=== PATIENT | female | born 2000 | race Two or more races ===

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

== ENCOUNTER 2018-09-12 16:29 | Emergency (ER) | payer MEDICAID ==
--- NOTE | 2018-09-12 17:21 | ER Document Report ---
ED Medical Screen (RME) - General Chief Complaint: OB Problem (<20wks) Stated Complaint: VAGINAL BLEEDING X2 DAYS Time Seen by Provider: 09/12/18 17:10 Primary Care Provider: SOFIE MITCHELL CNM [Primary Care Provider] - Follow up as needed TRAVEL OUTSIDE OF THE [place] IN LAST 30 DAYS: No - HPI Notes: 09/12/18 17:20 Patient is a 18-year-old female G3, P1 19 weeks 6 days who presents complaining of intermittent "mild" cramping with spotting over the past 2 days. Patient states that he does not feel like labor his cramps but more of a menstrual type cramps. She is able to eat and drink without difficult he. She is urinating normally. She is having normal bowel movements. She has not been seen by [facility] who wanted her evaluated here. Denies [place], fever, neck pain, URI, CP, SOB, dysuria, back pain, or rash. I have treated and performed a rapid initial assessment of this patient. A comprehensive ED assessment and evaluation of the patient, analysis of test resu lts and completion of medical decision making process will be conducted by additional ED providers. PHYSICAL EXAMINATION: GENERAL: Well-appearing, well-nourished and in no acute distress. A&Ox4. A nswers questions appropriately. LUNGS: Breath sounds clear to auscultation bilaterally and equal. No wheezes rales or rhonchi. HEART: Regular rate and rhythm without murmurs, rubs, gallops. ABDOMEN: Soft, nondistended abdomen. No guarding, no rebound. Normal bowel sounds present. No CVA tenderness bilaterally. + mild tenderness lower abd (cannot elicit thorough abd exam w/o bed, however). - Related Data Allergies/Adverse Reactions: amoxicillin [Amoxicillin] Allergy (Verified 09/12/18 17:04) Penicillins Allergy (Verified 09/12/18 17:04) Past Medical History - General Last Menstrual Period: 04/26/18 - Social History Frequency of alcohol use: None Drug Abuse: None Renal/ Medical History: Denies: Hx Peritoneal Dialysis Psychiatric Medical History: Reports: Hx Depression Past Surgical History: Reports: Hx Section, Hx Oral Surgery - Immunizations Immunizations up to date: Yes Hx Diphtheria, Pertussis, Tetanus Vaccination: Yes History of Influenza Vaccine for 12/2016 - 05/2017 Season: No Physical Exam - Vital signs Vitals: Temp Pulse Resp BP Pulse Ox 98.2 F 79 16 111/58 L 98 09/12/18 16:52 09/12/18 16:52 09/12/18 16:52 09/12/18 16:52 09/12/18 16:52 Course - Vital Signs Vital signs: Temp Pulse Resp BP Pulse Ox 98.2 F 79 16 111/58 L 98 09/12/18 16:52 09/12/18 16:52 09/12/18 16:52 09/12/18 16:52 09/12/18 16:52 Doctor's Discharge - Discharge Referrals: SOFIE MITCHELL CNM [Primary Care Provider] - Follow up as needed
[2018-09-12 17:37] LABS: APPEARANCE,URINE SLIGHTLY-CLOUDY; BILIRUBIN,URINE NEGATIVE (NEGATIVE); COLOR,URINE YELLOW; GLUCOSE, URINE NEGATIVE (NEGATIVE); KETONES,URINE NEGATIVE (NEGATIVE); LEUKOCYTE ESTERASE,URINE NEGATIVE (NEGATIVE); NITRITE,URINE NEGATIVE (NEGATIVE); PROTEIN,URINE NEGATIVE (NEGATIVE); URINE SPECIFIC GRAVITY 1.006; UROBILINOGEN,URINE NEGATIVE mg/dL (<2.0)
--- NOTE | 2018-09-12 18:38 | RADIOLOGY REPORT (SQ) ---
EXAM DESCRIPTION: U/S OB 14+ TRNABD 1GES W/O DOP COMPLETED DATE/TIME: 09/12/2018 6:25 pm REASON FOR STUDY: 19wks 6 days per pt, spotting COMPARISON: None. TECHNIQUE: Static and Dynamic grayscale imaging performed of gravid uterus using transabdominal appr oach. Additional selected color Doppler and spectral images recorded. All stored on PACS. LIMITATIONS: None. FINDINGS: FETUSES SEEN:1 EGA: 15 weeks 5 days Calculated using BPD,FL,HC,AC documented on images. 1 month discrepancy with cl inical dates. ROBBI: 03/01/2019 EFW: 126+/- 19 grams PERCENTILE: Not calculated. IVETT: 10.6 cm. PLACENTA: Posterior GRADE: I PRESENTATION: Variable. ANATOMY: HEART RATE: 155 beats per minute. FOUR CHAMBER HEART: Visualized. THREE VESSEL CORD: Not seen CORD INSERTION: Not seen KIDNEYS AND BLADDER: Kidneys is seen and appear normal. The bladder is not seen. STOMACH: Visualized. Appears normal. SPINE: Normal as visualized. BRAIN AND LATERAL VENTRICLES: Not well seen. OTHER: No other significant finding. MATERNAL ADNEXA: Maternal ovaries not visualized. CERVICAL LENGTH: Not seen. Closed. OTHER: No other significant finding. IMPRESSION: LIVING INTRAUTERINE . ESTIMATED GESTATIONAL AGE 15 weeks 5 days. survey is limited. No abnormalities were seen. The is 4 weeks behind the clinical g estational age. Trimester of : Second trimester - 13 weeks 1 day to 27 weeks 6 days. TECHNICAL DOCUMENTATION: JOB ID: [id number] [employer]- All Rights Reserved Reading location - IP/workstation name: [email or web address]
[2018-09-12 18:48] LABS: ABSOLUTE LYMPHOCYTES (AUTO) 1.9 10^3/uL (0.5-4.7); ABSOLUTE MONOCYTES (AUTO) 0.4 10^3/uL (0.1-1.4); BASOPHILS % (AUTO) 0.3 % (0-2); EOSINOPHILS % (AUTO) 0.3 % (0-6); HEMATOCRIT 39.9 % (36.0-47.0); HEMOGLOBIN 13.5 g/dL (12.0-15.5); LYMPHOCYTES % (AUTO) 25.4 % (13-45); MEAN CORPUSCULAR HEMOGLOBIN 29.5 pg (27.0-33.4); MEAN CORPUSCULAR HGB CONC 33.9 g/dL (32.0-36.0); MEAN CORPUSCULAR VOLUME 87 fl (80-97); MONOCYTES % (AUTO) 5.3 % (3-13); PLATELET COUNT 202 10^3/uL (150-450); RED BLOOD COUNT 4.58 10^6/uL (3.72-5.28); RED CELL DISTRIBUTION WIDTH 12.6 % (11.5-14.0); SEGMENTED NEUTROPHILS % (AUTO) 68.7 % (42-78); TOTAL CELLS COUNTED % (AUTO) 100 %; WHITE BLOOD COUNT 7.3 10^3/uL (4.0-10.5)
[2018-09-12 19:04] LABS: ANION GAP 8 (5-19); BLOOD UREA NITROGEN 4 mg/dL (7-20); CALCIUM 9.5 mg/dL (8.4-10.2); CARBON DIOXIDE 25 mmol/L (22-30); CHLORIDE 104 mmol/L (98-107); GLUCOSE 74 mg/dL (75-110); POTASSIUM 4.1 mmol/L (3.6-5.0); SODIUM 136.8 mmol/L (137-145)
--- NOTE | 2018-09-12 19:40 | ER Document Report ---
ED General - General Chief Complaint: OB Problem (<20wks) Stated Complaint: VAGINAL BLEEDING X2 DAYS Time Seen by Provider: 09/12/18 17:10 Primary Care Provider: [facility] [Provider Group] - Follow up as needed SOFIE MITCHELL CNM [ALLIED HEALTH PROFESSIONAL] - Follow up in 3-5 days Notes: Patient is a 18-year-old female, G3, P1 that presents to the emergency department for chief complaint of vaginal bleeding. Patient reports she is approximately 20 weeks gravid, and had some vaginal spotting yesterday and today, was concerned her so she came to the emergency department to have it evaluated. She denies any significant bleeding, or soaking through any pads. She has had some mild abdominal cramping, describes it as a 2 out of 10, nothing unbearable. She denies having any associated nausea or vomiting or diarrhea. Denies any dysuria or hematuria. No other complaints at this time. She reports she did have a miscarriage in 1 of her prior pregnancies. Past Medical History: Denies chronic medical conditions Past Surgical History: Social History: Denies tobacco, alcohol or drug use. Family History: Reviewed and noncontributory for presenting illness Allergies: Reviewed, see documented allergy list. REVIEW OF SYSTEMS: Other than noted above, the 12 point review of systems was reviewed with the patient and were negative, all pertinent findings are included in the HPI. PHYSICAL EXAMINATION: Vital signs reviewed, nursing noted reviewed. GENERAL: Well-appearing, well-nourished and in no acute distress. HEAD: Atraumatic, normocephalic. EYES: Eyes appear normal, extraocular movements intact, sclera anicteric, conjunctiva are normal. ENT: nares patent, oropharynx clear without exudates. Moist mucous membranes. NECK: Normal range of motion, supple without lymphadenopathy LUNGS: Breath sounds clear to auscultation bilaterally and equal. No wheezes rales or rhonchi. HEART: Regular rate and rhythm without murmurs ABDOMEN: Soft, nontender, normoactive bowel sounds. No rebound, guarding, or rigidity. No masses appreciated. EXTREMITIES: Nontender, good range of motion, no pitting or edema. NEUROLOGICAL: No focal neurological deficits. Moves all extremities spontaneously Motor and sensory grossly intact on exam. PSYCH: Normal mood, normal affect. SKIN: Warm, Dry, normal turgor, no rashes or lesions noted on exposed skin TRAVEL OUTSIDE OF THE [place] IN LAST 30 DAYS: No - Related Data Allergies/Adverse Reactions: amoxicillin [Amoxicillin] Allergy (Verified 09/12/18 17:04) Penicillins Allergy (Verified 09/12/18 17:04) Past Medical History - General Last Menstrual Period: 04/26/18 - Social History Smoking Status: Never Smoker Frequency of alcohol use: None Drug Abuse: None Family History: Reviewed & Not Pertinent Patient has suicidal ideation: No Patient has homicidal ideation: No Renal/ Medical History: Denies: Hx Peritoneal Dialysis Psychiatric Medical History: Reports: Hx Depression Past Surgical History: Reports: Hx Section, Hx Oral Surgery - Immunizations Immunizations up to date: Yes Hx Diphtheria, Pertussis, Tetanus Vaccination: Yes Physical Exam - Vital signs Vitals: Temp Pulse Resp BP Pulse Ox 98.2 F 79 16 111/58 L 98 09/12/18 16:52 09/12/18 16:52 09/12/18 16:52 09/12/18 16:52 09/12/18 16:52 Course - Re-evaluation Re-evalutation: Patient seen and examined vital signs reviewed. Laboratory data and/or imaging were ordered as appropriate for the patient's presenting symptoms and complaint, with consideration of any critical or life threatening conditions that may be associated with their obtained history and ex am as noted above. Results were reviewed when available and demonstrated unremarkable blood work, h er OB ultrasound, demonstrated a single live intrauterine , with measuring smaller than gestational age by history, approximately 15 weeks as opposed to 20, this was discussed with the patient, however the fetus did appear live, with heartbeat and movements. The patient was re-evaluated and was stable Evaluation was most consistent with vaginal bleeding and advised follo w-up with [employer], given referral. Results were discussed with the patient at this point, after careful consideration I feel that that patient can be discharged from the emergency department, the patient was educated treatments and reasons to return to the emergency department based on their presumed diagnosis as noted above, they were advised to followup with a primary care physician in 2-3 days. Patient was agreeable to plan of care. *Note is created using voice recognition software and may contain spelling, syntax or grammatical errors. Laboratory 09/12/18 09/12/18 09/12/18 17:20 18:27 18:27 WBC 7.3 RBC 4.58 Hgb 13.5 Hct 39.9 MCV 87 MCH 29.5 MCHC 33.9 RDW 12.6 Plt Count 202 Seg Neutrophils % 68.7 Lymphocytes % 25.4 Monocytes % 5.3 Eosinophils % 0.3 Basophils % 0.3 Absolute Neutrophils 5.0 Absolute Lymphocytes 1.9 Absolute Monocytes 0.4 Absolute Eosinophils 0.0 Absolute Basophils 0.0 Sodium 136.8 L Potassium 4.1 Chloride 104 Carbon Dioxide 25 Anion Gap 8 BUN 4 L Creatinine 0.44 L Est GFR ( Amer) > 60 Est GFR (Non-Af Amer) > 60 Glucose 74 L Calcium 9.5 Urine Color YELLOW Urine Appearance SLIGHTLY-CLOUDY Urine pH 6.0 Ur Specific [place] 1.006 Urine Protein NEGATIVE Urine Glucose (UA) NEGATIVE Urine Ketones NEGATIVE Urine Blood SMALL H Urine Nitrite NEGATIVE Urine Bilirubin NEGATIVE Urine Urobilinogen NEGATIVE Ur Leukocyte Esterase NEGATIVE Urine WBC (Auto) 1 Urine RBC (Auto) 0 Urine Bacteria (Auto) 3+ Squamous Epi Cells Auto 10 Urine Mucus (Auto) OCC Urine Ascorbic Acid NEGATIVE Obstetrics Ultrasound 09/12/18 17:19 IMPRESSION: LIVING INTRAUTERINE . ESTIMATED GESTATIONAL AGE 15 weeks 5 days. survey is limited. No abnormalities were seen. The is 4 weeks behind the clinical gestational age. Trimester of : Second trimester - 13 weeks 1 day to 27 weeks 6 days. - Vital Signs Vital signs: Temp Pulse Resp BP Pulse Ox 98.2 F 79 16 122/63 98 09/12/18 19:30 09/12/18 19:30 09/12/18 19:30 09/12/18 19:30 09/12/18 19:30 - Laboratory Result Diagrams: 09/12/18 18:27 09/12/18 18:27 Laboratory results interpreted by me: 09/12/18 09/12/18 17:20 18:27 Sodium 136.8 L BUN 4 L Creatinine 0.44 L Glucose 74 L Urine Blood SMALL H Discharge - Discharge Clinical Impression: Vaginal bleeding during Condition: Stable Disposition: HOME, SELF-CARE Instructions: Bleeding During Early ([facility]) Additional Instructions: Please follow-up with your care team, your ultrasound today did not reveal any concerning cause of bleeding in , but continue to monitor for any worsening symptoms such as severe cramping, or passing of clots or more blood. Referrals: SOFIE MITCHELL CNM [ALLIED HEALTH PROFESSIONAL] - Follow up in 3-5 days [facility] [Provider Group] - Follow up as needed
[2018-09-12 19:54] VITALS: BP 122/63
== END 2018-09-12 19:57 | disposition home or self-care (01) ==
LOC: ER 16:29
DX: O46.92 Antepartum hemorrhage, unspecified, second trimester (principal); O26.892 Other specified pregnancy related conditions, second trimester; R10.9 Unspecified abdominal pain; Z3A.15 15 weeks gestation of pregnancy
CPT/HCPCS: 36415; 76805; 80048; 81001; 85025; 87086; 99284

== ENCOUNTER → 2018-09-12 | Outpatient (CLI) | payer MEDICAID | LOC: LC 15:23 | PROVIDERS: ATTEND Obstetrics & Gynecology | DX: Z53.9 Procedure and treatment not carried out, unspecified reason (principal) ==

== ENCOUNTER 2019-03-03 06:13 | Inpatient (IN) | payer MEDICAID ==
[2019-03-01 10:56] LABS: APPEARANCE,URINE SLIGHTLY-CLOUDY; BILIRUBIN,URINE NEGATIVE (NEGATIVE); COLOR,URINE YELLOW; GLUCOSE, URINE NEGATIVE (NEGATIVE); KETONES,URINE NEGATIVE (NEGATIVE); LEUKOCYTE ESTERASE,URINE MODERATE (NEGATIVE); NITRITE,URINE NEGATIVE (NEGATIVE); PROTEIN,URINE NEGATIVE (NEGATIVE); URINE SPECIFIC GRAVITY 1.009; UROBILINOGEN,URINE NEGATIVE mg/dL (<2.0)
[2019-03-01 11:04] LABS: URINE AMPHETAMINES SCREEN NEGATIVE; URINE BARBITURATES SCREEN NEGATIVE; URINE BENZODIAZEPINES SCREEN NEGATIVE; URINE COCAINE SCREEN NEGATIVE; URINE MARIJUANA (THC) SCREEN NEGATIVE; URINE METHADONE SCREEN NEGATIVE; URINE PHENCYCLIDINE SCREEN NEGATIVE
[2019-03-01 11:29] LABS: ABSOLUTE LYMPHOCYTES (AUTO) 2.3 10^3/uL (0.5-4.7); ABSOLUTE MONOCYTES (AUTO) 0.3 10^3/uL (0.1-1.4); ABSOLUTE NEUT (AUTO) 6.5 10^3/uL (1.7-8.2); BASOPHILS % (AUTO) 0.3 % (0-2); EOSINOPHILS % (AUTO) 0.4 % (0-6); HEMATOCRIT 35.7 % (36.0-47.0); HEMOGLOBIN 11.9 g/dL (12.0-15.5); LYMPHOCYTES % (AUTO) 24.7 % (13-45); MEAN CORPUSCULAR HEMOGLOBIN 26.5 pg (27.0-33.4); MEAN CORPUSCULAR HGB CONC 33.3 g/dL (32.0-36.0); MEAN CORPUSCULAR VOLUME 80 fl (80-97); MONOCYTES % (AUTO) 3.8 % (3-13); PLATELET COUNT 199 10^3/uL (150-450); RED BLOOD COUNT 4.49 10^6/uL (3.72-5.28); RED CELL DISTRIBUTION WIDTH 15.8 % (11.5-14.0); SEGMENTED NEUTROPHILS % (AUTO) 70.8 % (42-78); TOTAL CELLS COUNTED % (AUTO) 100 %; WHITE BLOOD COUNT 9.2 10^3/uL (4.0-10.5)
[~2019-03-03 06:13] MED LIST: CEFAZOLIN SODIUM 2 GM in DEXTROSE 5%-WATER 100 ML IV PRN; CITRIC ACID/SODIUM CITRATE ORAL SOLN 15 ML UDCUP PO PRN; LACTATED RINGERS 1000 ML IV PRN; LIDOCAINE 0.5% INJ-PF (5 MG/ML) 50 ML SDV SUBCUT PRN; RINGERS SOLUTION,LACTATED 1,500 ML IV PRN
[2019-03-03] MEDS ORDERED: KETAMINE HCL INJ 500 MG/10 ML VIAL ONE (07:07)
[2019-03-03] MEDS ORDERED: INFLUENZA QUAD (6MOS+) 2019-20 VAC 0.5 ML SYR IM ONE (07:50)
[2019-03-03] MEDS ORDERED: PROPOFOL INJ 200 MG/20 ML VIAL IV ONE (08:51)
[2019-03-03] MEDS ORDERED: DIPHENHYDRAMINE HCL 50 MG/ML VIAL ONE (08:51)
[2019-03-03] MEDS ORDERED: FENTANYL CITRATE INJ/PF 100 MCG/2 ML AMPUL ONE (08:51)
[2019-03-03] MEDS ORDERED: OXYTOCIN 10 UNIT/ML VIAL ONE (08:51)
[2019-03-03] MEDS ORDERED: MIDAZOLAM 2 MG/2 ML INJ ONE (08:51)
[2019-03-03] MEDS ORDERED: ACETAMINOPHEN 1,000 MG/100 ML RTUPB IV ONE (08:52)
[2019-03-03] MEDS ORDERED: OXYTOCIN/NORMAL SALINE 20 UNIT/1,000 ML RTUINJ ONE (08:52)
[2019-03-03] MEDS ORDERED: ONDANSETRON HCL INJ/PF 4 MG/2 ML SDV ONE (08:52)
[2019-03-03] MEDS ORDERED: CLINDAMYCIN 900 MG/D5W RTU 900 MG/50 ML RTUPB IV PRN (09:00)
[2019-03-03] MEDS ORDERED: LIDOCAINE 2% INJ-PF (20 MG/ML) 10 ML AMPUL ONE (09:31)
[2019-03-03] MEDS ORDERED: MEPERIDINE HCL/PF INJ 25 MG/1 ML DISP.SYRIN IV PRN (10:10)
[2019-03-03] MEDS ORDERED: ONDANSETRON HCL INJ/PF 4 MG/2 ML SDV IV PRN (10:10)
[2019-03-03] MEDS ORDERED: DIPHENHYDRAMINE HCL 50 MG/ML VIAL IV PRN (10:10)
[2019-03-03] MEDS ORDERED: FENTANYL CITRATE INJ/PF 100 MCG/2 ML AMPUL IV PRN ×3 (10:10)
[2019-03-03] MEDS ORDERED: MORPHINE SULFATE 10 MG/ML INJ IV PRN (10:10)
[2019-03-03] MEDS ORDERED: OXYCODONE-ACETAMINOPHEN 5-325 MG TABLET PO PRN ×3 (10:10→11:12)
[2019-03-03] MEDS ORDERED: PROMETHAZINE HCL INJ 25 MG/1 ML VIAL IV PRN ×2 (10:10→11:12)
--- NOTE | 2019-03-03 11:06 | PDOC DELIVERY SUMMARY ---
Delivery Summary - Maternal Hx : III Hx Para: I Hx # Term Pregnancies: 1 Hx # Pregnancies: 0 Hx Total # of Abortions (Sponateous & Elective): 1 ROBBI: 03/04/19 Gestational Age: 39.6 Risk Factors: Previous Ruptured Membranes: AROM Time of Rupture: 10:12 Fluids: Clear - Delivery Labor: Not In Labor Presentation: Vertex Heart Rate Monitoring: Done Pre-Operatively Uterine Contraction Monitoring: External Support Person Present: Yes Location: OR : Scheduled Placenta: Within Normal Limits Placenta Description: Normal-appearing Number of Vessels (Cord): 3 Nuchal Cord: No Delivery of Placenta Date: 03/03/19 Delivery of Placenta Time: 10:15 Delivery Quantitative Blood Loss (QBL): 520 - Medications Type of Anesthesia:: Epidural - Infant Assess and Care Female Delivery of Infant Date: 03/03/19 Delivery of Infant Time: 10:14 at 1 minute: 9 at 5 minutes: 9 Preprinted Number On Band: [id number] Infant Skin to Skin: No To Nursery At: 10:25 Mode of Transport: Bassinet Delivery Weight: 3,985 Infant Delivery Length: 20.5 in - Delivery Personnel Nursery RN: FREYA PAUL MD: CHAU BERRIOS
[2019-03-03] MEDS ORDERED: RINGERS SOLUTION,LACTATED 1,000 ML IV PRN (11:12)
[2019-03-03] MEDS ORDERED: MEASLES,MUMPS&RUBELLA VACC/PF 0.5 ML VIAL SUBCUT PRN (11:12)
[2019-03-03] MEDS ORDERED: DIPH/PERTUSS(ACELL)/TETANUS VAC/PF 0.5 ML SYR (>=10YO) IM PRN (11:12)
[2019-03-03] MEDS ORDERED: ACETAMINOPHEN 1,000 MG/100 ML RTUPB IV PRN (11:12)
[2019-03-03] MEDS ORDERED: SIMETHICONE 80 MG TAB.CHEW PO PRN (11:12)
[2019-03-03] MEDS ORDERED: ACETAMINOPHEN 325 MG TABLET PO PRN (11:12)
[2019-03-03] MEDS ORDERED: OXYTOCIN/NORMAL SALINE 20 UNIT/1,000 ML RTUINJ IV PRN (11:12)
--- NOTE | 2019-03-03 11:12 | Operative Report ---
Operative Report DATE OF SURGERY: 03/03/19 PREOPERATIVE DIAGNOSIS: 1. Intrauterine at 39-6/7 weeks. 2. Repeat section x1. 3. GBS negative. 4. Desires permanent sterilization. 5. Rh+. 6. Rubella nonimmune. 7. Maternal obesity POSTOPERATIVE DIAGNOSIS: Same OPERATION: 1. Repeat section via Pfannenstiel. 2. Scar revision. 3. Bilateral tubal occlusion with Filshie clips SURGEON: CHAU GOMEZ ANESTHESIA: Epidural TISSUE REMOVED OR ALTERED: Placenta COMPLICATIONS: None QUANTITATIVE BLOOD LOSS: 520 INTRAOPERATIVE FINDINGS: Female in a cephalic position; Apgars 9 at 1, 9 at 5 with a weight of 8 pounds 13 ounces; normal uterus, bilateral tubes and ovaries PROCEDURE: The patient was taken to the operating room where spinal anesthesia was obtained and found to be adequate. She was then prepped and draped in the normal sterile fashion and placed in the dorsal supine position with a leftward tilt. A Pfannenstiel skin incision was then made, using the previous incision as a guide. The old scar, which was hypertrophic was cut away. The scalpel was then carried through to the underlying layers of the fascia with the scalpel. The fascia was incised in the midline and the incision extended laterally with the Lam scissors. The superior aspect of the fascial incision was then grasped with Joslyn clamps elevated and the underlying rectus muscles dissected off both bluntly and sharply. Attention was then turned to the inferior aspect of the fascial incision which in a similar fashion was grasped, tented up with Joslyn clamps, and the rectus muscles dissected off both bluntly and sharply. The rectus muscles were then in the midline and the peritoneum was identified and entered both sharply and bluntly. The peritoneal incision was then extended superiorly and inferiorly with good visualization of the bladder. The bladder blade was inserted and the vesicouterine peritoneum identified grasped with [place] pickups and entered sharply with the Metzenbaum scissors. This incision was then extended laterally with the Metzenbaum scissors and a bladder flap created digitally. The bladder blade was then reinserted and the lower uterine segment incised in a transverse fashion with the scalpel. The u terine incision was then extended bluntly and with the bandage scissors. The bladder blade was removed and the 's head was delivered from cephalic presentation, atraumatically. The cord doubly clamped and cut. The infant was handed off to waiting pediatricians. The placenta was then delivered manually and the uterus exteriorized and cleared of all clots and debris. The uterine incision was then repaired with 0 Vicryl in a running locked fashion. 0-Chromic was used to obtain hemostasis via imbrication of the initial layer. The bladder flap was then repaired with 3-0 Vicryl in a running fashion. Attention was then turned to the permanent sterilization, where the right lobe began tube was identified and held with a Ruben clamp. The Filshie clip was then placed in the midportion of the tube. Hemostasis was noted. Same procedure was performed on the left fallopian tube and hemostasis was also noted. The uterus was returned to the patient's abdomen and Interceed was placed overlying the uterine incision, as well as a piece placed vertically on the anterior surface of the uterus, to prevent adhesions. The gutters were cleared of all clots and debris. The peritoneum was then closed in a running fashion with 2-0 Vicryl. All operative sites were noted to be hemostatic. The fascia was reapproximated with 0 Vicryl in a running fashion from each lateral edge to the midline. The subcutaneous fat layer was then closed in an interrupted fashion with 3-0 vicryl. The skin was closed with 4-0 Monocryl in a running, subcuticular fashion. The patient tolerated the procedure well. Sponge, lap, needle and instrument counts are correct x 2. 900 mg of clindamycin was given prior to skin incision. The patient was taken to the recovery area awake and in stable condition.
[2019-03-03] MEDS ORDERED: RINGERS SOLUTION,LACTATED 1,000 ML IV ONE (13:01)
[2019-03-03] MEDS: IBUPROFEN 800 MG TABLET PO SCH ×2 (13:36→18:43)
[2019-03-03] MEDS: HYDROMORPHONE HCL INJ/PF 2 MG/ML AMPULE IV PRN ×2 (13:45→20:15)
[2019-03-03] MEDS: OXYCODONE-ACETAMINOPHEN 5-325 MG TABLET PO PRN (16:23)
[2019-03-03] MEDS: DOCUSATE SODIUM 100 MG CAPSULE PO SCH (18:41)
[2019-03-03] MEDS: KETOROLAC TROMETHAMINE INJ/PF 30 MG/1 ML SDV IV SCH ×2 (18:43→22:28)
[2019-03-04] MEDS: KETOROLAC TROMETHAMINE INJ/PF 30 MG/1 ML SDV IV SCH ×3 (05:04→23:06)
[2019-03-04] MEDS: IBUPROFEN 800 MG TABLET PO SCH ×5 (06:10→23:15)
[2019-03-04 08:31] LABS: HEMATOCRIT 32.9 % (36.0-47.0); HEMOGLOBIN 10.9 g/dL (12.0-15.5); MEAN CORPUSCULAR HEMOGLOBIN 26.2 pg (27.0-33.4); MEAN CORPUSCULAR VOLUME 79 fl (80-97); PLATELET COUNT 161 10^3/uL (150-450); RED BLOOD COUNT 4.15 10^6/uL (3.72-5.28); RED CELL DISTRIBUTION WIDTH 15.8 % (11.5-14.0); WHITE BLOOD COUNT 9.9 10^3/uL (4.0-10.5)
--- NOTE | 2019-03-04 08:46 | PDOC PROGRESS REPORT ---
Subjective-OB Progress Note for:: 03/04/19 Subjective: Doing well, no c/o, eating, voiding, took a shower, hsb at BS, Physical Exam (OB) Vital Signs: Temp Pulse Resp BP Pulse Ox 97.8 F 86 18 101/57 L 99 03/04/19 07:48 03/04/19 07:48 03/04/19 07:48 03/04/19 07:48 03/04/19 07:48 Intake & Output 03/03/19 03/04/19 03/05/19 06:59 06:59 06:59 Intake Total 3620 Output Total 6800 Balance -3180 Weight 103.42 kg - PIH/Pre-Eclampsia Headache: Absent Epigastric Pain: No Visual Changes: No - Dressing Removed: No Incision: Dressing Closure Type: opsite - Lochia Lochia Amount: Small 10-25 ml Lochia Color: Rubra/Red - Abdomen Description: Soft, Round Hernia Present: No Fundal Description: Firm, Midline Fundal Height: u/u - u/2 Objective-Diagnostic Laboratory: 03/04/19 08:01 03/04/19 08:01 WBC 9.9 RBC 4.15 Hgb 10.9 L Hct 32.9 L MCV 79 L MCH 26.2 L MCHC 33.0 RDW 15.8 H Plt Count 161 Assessment and Plan(PN) - Assessment and Plan (1) delivery delivered Is this a current diagnosis for this admission?: Yes (2) Post term at 41 weeks gestation Is this a current diagnosis for this admission?: Yes - Time Spent with Patient Time with patient: Less than 15 minutes Medications reviewed and adjusted accordingly: Yes - Disposition Anticipated Discharge: Home Within: within 24 hours
[2019-03-04] MEDS: PRENATAL VITAMIN W DHA CAPSULE PO SCH (10:17)
[2019-03-04] MEDS: DOCUSATE SODIUM 100 MG CAPSULE PO SCH ×2 (10:17→17:04)
[2019-03-04] MEDS: OXYCODONE-ACETAMINOPHEN 5-325 MG TABLET PO PRN ×2 (17:05→23:16)
[2019-03-05] MEDS: OXYCODONE-ACETAMINOPHEN 5-325 MG TABLET PO PRN ×2 (05:18→09:23)
[2019-03-05] MEDS: IBUPROFEN 800 MG TABLET PO SCH (05:19)
[2019-03-05] MEDS: KETOROLAC TROMETHAMINE INJ/PF 30 MG/1 ML SDV IV SCH (06:27)
[2019-03-05] MEDS: PRENATAL VITAMIN W DHA CAPSULE PO SCH (09:23)
[2019-03-05] MEDS: DOCUSATE SODIUM 100 MG CAPSULE PO SCH (09:23)
--- NOTE | 2019-03-05 09:45 | PDOC PROGRESS REPORT ---
Subjective-OB Progress Note for:: 03/05/19 Subjective: Doing well, ready to go home, hsb at BS, no c/o, feels good, passing gas, eating well, Physical Exam (OB) Vital Signs: Temp Pulse Resp BP Pulse Ox 97.7 F 62 16 103/56 L 96 03/05/19 07:32 03/05/19 07:32 03/05/19 07:32 03/05/19 07:32 03/05/19 07:32 Intake & Output 03/04/19 03/05/19 03/06/19 06:59 06:59 06:59 Intake Total 3620 1750 Output Total 6800 Balance -3180 1750 - PIH/Pre-Eclampsia Headache: Absent Epigastric Pain: No Visual Changes: No - Dressing Removed: No Incision: Dressing Closure Type: OPSITE - Bilateral Tubal Ligation Dressing Removed: No - Opsite, C/Section Site: Dressing - Lochia Lochia Amount: Small 10-25 ml Lochia Color: Rubra/Red - Abdomen Description: Soft Hernia Present: No Fundal Description: Firm, Midline Fundal Height: u/u - u/2 Objective-Diagnostic Laboratory: 03/04/19 08:01 Assessment and Plan(PN) - Assessment and Plan (1) delivery delivered Is this a current diagnosis for this admission?: Yes (2) Post term at 41 weeks gestation Is this a current diagnosis for this admission?: Yes - Time Spent with Patient Time with patient: Less than 15 minutes Medications reviewed and adjusted accordingly: Yes - Disposition Anticipated Discharge: Home Within: within 24 hours
--- NOTE | 2019-03-05 09:50 | PDOC DISCHARGE SUMMARY ---
Impression - Admit/DC Date/PCP Admission Date/Primary Care Provider: 03/03/19 06:13 CHAU Desouza ELIZA PATRICIADO Discharge Date: 03/05/19 - Discharge Diagnosis (1) delivery delivered Is this a current diagnosis for this admission?: Yes (2) Post term at 41 weeks gestation Is this a current diagnosis for this admission?: Yes - Additional Information Resuscitation Status: Full Code Discharge Diet: As Tolerated, Regular Discharge Activity: Activity As Tolerated, No Driving, No Lifting Over 10 Pounds, No Lifting/Push/Pulling, Pelvic Rest, Slowly Increase Activity, No tub bath [facility] [[facility] () Prescriptions: Oxycodone HCl/Acetaminophen [Percocet 5-325 mg Tablet] 1 tab PO Q4HP PRN #20 tablet PRN Reason: Ibuprofen [Motrin 800 mg Tablet] 800 mg PO Q6 #30 tablet Home Medications: Vit/Iron Fum/Folic AC [ Tablet] 1 each PO DAILY 02/13/17 Ibuprofen [Motrin 800 mg Tablet] 800 mg PO Q6 #30 tablet 03/05/19 Oxycodone HCl/Acetaminophen [Percocet 5-325 mg Tablet] 1 tab PO Q4HP PRN #20 tablet 03/05/19 HPI Gestational Age: 39 Reason(s) for Admission: Ceasarean Section-Repeat Procedures: NST, Ultrasound Intrapartum Procedure(s): : Low Cervical, Transverse - baby home with mom Hospital Course Hospital Course: normal post op course Results Laboratory Results: WBC 9.9 10^3/uL (4.0-10.5) 03/04/19 08:01 RBC 4.15 10^6/uL (3.72-5.28) 03/04/19 08:01 Hgb 10.9 g/dL (12.0-15.5) L 03/04/19 08:01 Hct 32.9 % (36.0-47.0) L 03/04/19 08:01 MCV 79 fl (80-97) L 03/04/19 08:01 MCH 26.2 pg (27.0-33.4) L 03/04/19 08:01 MCHC 33.0 g/dL (32.0-36.0) 03/04/19 08:01 RDW 15.8 % (11.5-14.0) H 03/04/19 08:01 Plt Count 161 10^3/uL (150-450) 03/04/19 08:01 Lymph % (Auto) 24.7 % (13-45) 03/01/19 10:17 [place]comb % (Auto) 3.8 % (3-13) 03/01/19 10:17 Eos % (Auto) 0.4 % (0-6) 03/01/19 10:17 Baso % (Auto) 0.3 % (0-2) 03/01/19 10:17 Absolute Neuts (auto) 6.5 10^3/uL (1.7-8.2) 03/01/19 10:17 Absolute Lymphs (auto) 2.3 10^3/uL (0.5-4.7) 03/01/19 10:17 Absolute Monos (auto) 0.3 10^3/uL (0.1-1.4) 03/01/19 10:17 Absolute Eos (auto) 0.0 10^3/uL (0.0-0.6) 03/01/19 10:17 Absolute Basos (auto) 0.0 10^3/uL (0.0-0.2) 03/01/19 10:17 Seg Neutrophils % 70.8 % (42-78) 03/01/19 10:17 Urine Color YELLOW 03/01/19 09:32 Urine Appearance SLIGHTLY-CLOUDY 03/01/19 09:32 Urine pH 7.0 (5.0-9.0) 03/01/19 09:32 Ur Specific [place] 1.009 03/01/19 09:32 Urine Protein NEGATIVE mg/dL (NEGATIVE) 03/01/19 09:32 Urine Glucose (UA) NEGATIVE mg/dL (NEGATIVE) 03/01/19 09:32 Urine Ketones NEGATIVE mg/dL (NEGATIVE) 03/01/19 09:32 Urine Blood NEGATIVE (NEGATIVE) 03/01/19 09:32 Urine Nitrite NEGATIVE (NEGATIVE) 03/01/19 09:32 Urine Bilirubin NEGATIVE (NEGATIVE) 03/01/19 09:32 Urine Urobilinogen NEGATIVE mg/dL (<2.0) 03/01/19 09:32 Ur Leukocyte Esterase MODERATE (NEGATIVE) H 03/01/19 09:32 Urine WBC (Auto) 4 /HPF 03/01/19 09:32 Urine RBC (Auto) 1 /HPF 03/01/19 09:32 Urine Bacteria (Auto) 3+ /HPF 03/01/19 09:32 Squamous Epi Cells Auto 14 /HPF 03/01/19 09:32 Urine Mucus (Auto) RARE /LPF 03/01/19 09:32 Urine Ascorbic Acid NEGATIVE (NEGATIVE) 03/01/19 09:32 Urine Opiates Screen NEGATIVE 03/01/19 09:32 Urine Methadone Screen NEGATIVE 03/01/19 09:32 Ur Barbiturates Screen NEGATIVE 03/01/19 09:32 Ur Phencyclidine Scrn NEGATIVE 03/01/19 09:32 Ur Amphetamines Screen NEGATIVE 03/01/19 09:32 U Benzodiazepines Scrn NEGATIVE 03/01/19 09:32 Urine Cocaine Screen NEGATIVE 03/01/19 09:32 U Marijuana (THC) Screen NEGATIVE 03/01/19 09:32 Blood Type A POSITIVE 03/01/19 10:17 Antibody Screen NEGATIVE 03/01/19 10:17 Plan Health Concerns: normal post op course Plan of Treatment: home, discussed S&S to report Goals: no complications
[2019-03-05 10:02] VITALS: BP 109/62
== END 2019-03-05 11:10 | disposition home or self-care (01) | DRG 785 ==
LOC: 2S 06:13
PROVIDERS: ADMIT Obstetrics & Gynecology; ATTEND Obstetrics & Gynecology
PROC: 0UL70CZ Occlusion of Bilateral Fallopian Tubes with Extraluminal Device, Open Approach (ICD-10-PCS; 2019-03-03)
PROC: 10D00Z1 Extraction of Products of Conception, Low, Open Approach (ICD-10-PCS; principal; 2019-03-03 08:45)
PROC: 3E0234Z Introduction of Serum, Toxoid and Vaccine into Muscle, Percutaneous Approach (ICD-10-PCS; 2019-03-05)
DX: O34.211 Maternal care for low transverse scar from previous cesarean delivery (principal); N85.8 Other specified noninflammatory disorders of uterus; Z3A.39 39 weeks gestation of pregnancy; Z37.0 Single live birth; Z30.2 Encounter for sterilization; Z23 Encounter for immunization
CPT/HCPCS: 1961; 36415; 59025; 80307; 81001; 85025; 85027; 86850; 86900; 86901; 90686; 90715; 94799; C1765; J0131; J1170; J1200; J1885; J2250; J2405; J2590; J2704; J3010; J3490; J7120